=== PATIENT | female | born 2000 | race Caucasian/White ===

== ENCOUNTER 2018-12-15 20:37 | Outpatient (CLI) | payer OTHER | END 2018-12-15 22:52 | disposition home or self-care (01) | LOC: OBT 20:37 → L-D 20:37 → OBT 22:52 | DX: O28.0 Abnormal hematological finding on antenatal screening of mother (principal); Z3A.39 39 weeks gestation of pregnancy | CPT/HCPCS: 76818 ==

== ENCOUNTER 2018-12-18 08:25 | Inpatient (IN) | payer OTHER ==
[2018-12-18] MEDS: LACTATED RINGER'S 1,000 ML IV ×4 (09:26→22:47)
[2018-12-18] MEDS ORDERED: OXYTOCIN 30 UNITS/LR 500 ML IV ×2 (09:30→10:00)
[2018-12-18] MEDS ORDERED: MISOPROSTOL 200 MCG TAB PR (09:30)
[2018-12-18] MEDS ORDERED: CARBOPROST 250 MCG INJ IM (09:30)
[2018-12-18] MEDS ORDERED: METHYLERGONOVINE 0.2 MG INJ IM (09:30)
[2018-12-18 09:35] LABS: ADD MAN DIFF? NO
[2018-12-18 09:42] LABS: WHITE BLOOD COUNT 6.8 10^3/ul (4.8-10.8)
[2018-12-18 09:42] LABS: BASOPHILS % 0.3 % (0.0-2.0); EOSINOPHILS # 0.1 10^3/ul (0.0-0.5); EOSINOPHILS % 1.6 % (0.0-7.0); HEMATOCRIT 33.1 % (37.0-47.0); HEMOGLOBIN 10.7 g/dl (12.0-16.0); LYMPHOCYTES # 1.8 10^3/ul (0.8-2.9); LYMPHOCYTES % 25.8 % (18.0-55.0); MEAN CORPUSCULAR HEMOGLOBIN 28.9 pg (29.0-33.0); MEAN CORPUSCULAR HGB CONC 32.3 g/dl (32.0-37.0); MEAN CORPUSCULAR VOLUME 89.5 fl (72.0-104.0); MEAN PLATELET VOLUME 10.7 fl (7.4-10.4); MONOCYTE # 0.5 10^3/ul (0.3-0.9); MONOCYTES % 7.7 % (0.0-13.0); NEUTROPHIL # 4.3 10^3/ul (1.6-7.5); PLATELET COUNT 223 10^3/UL (140-415); RED CELL DISTRIBUTION WIDTH 13.4 % (11.5-14.5)
[2018-12-18] MEDS: MISOPROSTOL 50 MCG CAPSULE PO ×4 (09:59→22:00)
[2018-12-18 10:04] LABS: INR 0.97
[2018-12-18 10:05] LABS: PARTIAL THROMBOPLASTIN TIME 26.9 Sec (23.0-35.0)
[2018-12-18 15:02] LABS: RAPID PLASMA REAGIN NONREACTIVE (NR)
[2018-12-18] MEDS ORDERED: FENTAnyl 2MCG/ML-ROPIV 0.2% 100 ML (22:20)
[2018-12-18] MEDS ORDERED: NALOXONE (0.4 MG/ML) INJ IV (23:00)
[2018-12-18] MEDS ORDERED: FENTAnyl 2MCG/ML-ROPIV 0.2% 100 ML BAG EPI (23:00)
[2018-12-18] MEDS ORDERED: ONDANSETRON 4 MG INJ IV (23:00)
[2018-12-18] MEDS ORDERED: DIPHENHYDRAMINE 50 MG INJ IV (23:00)
[2018-12-18] MEDS ORDERED: TRIMETHOBENZAMIDE 100 MG/ML VIAL IM (23:00)
[2018-12-19] MEDS: BUTORPHANOL 2 MG INJ IV (00:11)
[2018-12-19] MEDS: LIDOCAINE 1% (MPF) 30 ML INJ INJ (00:14)
[2018-12-19] MEDS: OXYTOCIN 30 UNITS/LR 500 ML IV ×2 (00:16→01:05)
[2018-12-19] MEDS ORDERED: METHYLERGONOVINE 0.2 MG INJ IM (03:30)
[2018-12-19] MEDS ORDERED: HYDROCODONE/APAP (5/325) TAB PO (03:30)
[2018-12-19] MEDS ORDERED: MISOPROSTOL 200 MCG TAB PR (03:30)
[2018-12-19] MEDS ORDERED: OXYTOCIN 30 UNITS/LR 500 ML IV (03:30)
[2018-12-19] MEDS ORDERED: CARBOPROST 250 MCG INJ IM (03:30)
[2018-12-19] MEDS ORDERED: DIBUCAINE 1% 30 GM OINT TOP (03:30)
[2018-12-19] MEDS: BENZOCAINE 20% 56 ML SPRAY TOP (04:43)
[2018-12-19] MEDS: LACTATED RINGER'S 1,000 ML IV* ×2 (04:43→11:22)
[2018-12-19] MEDS: WITCH HAZEL/GLYCERIN PAD PR (04:44)
[2018-12-19] MEDS: IBUPROFEN 600 MG TAB PO ×4 (05:38→23:46)
[2018-12-19] MEDS: SENNA/DOCUSATE NA (8.6MG/50MG) TAB PO ×2 (09:35→21:25)
[2018-12-20] MEDS: ACETAMINOPHEN 325 MG TAB PO (04:04)
[2018-12-20] MEDS: IBUPROFEN 600 MG TAB PO ×4 (05:40→23:46)
[2018-12-20 08:37] LABS: ADD MAN DIFF? NO
[2018-12-20 08:44] LABS: BASOPHILS % 0.3 % (0.0-2.0); EOSINOPHILS # 0.2 10^3/ul (0.0-0.5); EOSINOPHILS % 2.6 % (0.0-7.0); HEMATOCRIT 29.2 % (37.0-47.0); HEMOGLOBIN 9.2 g/dl (12.0-16.0); LYMPHOCYTES # 2.1 10^3/ul (0.8-2.9); LYMPHOCYTES % 22.4 % (18.0-55.0); MEAN CORPUSCULAR HEMOGLOBIN 28.9 pg (29.0-33.0); MEAN CORPUSCULAR HGB CONC 31.5 g/dl (32.0-37.0); MEAN CORPUSCULAR VOLUME 91.8 fl (72.0-104.0); MEAN PLATELET VOLUME 10.6 fl (7.4-10.4); MONOCYTE # 0.5 10^3/ul (0.3-0.9); MONOCYTES % 4.8 % (0.0-13.0); NEUTROPHIL # 6.4 10^3/ul (1.6-7.5); NEUTROPHILS % 69.3 % (30.0-74.0); PLATELET COUNT 190 10^3/UL (140-415); RED BLOOD COUNT 3.18 10^6/ul (4.20-5.40)
[2018-12-20 08:44] LABS: WHITE BLOOD COUNT 9.3 10^3/ul (4.8-10.8)
[2018-12-20] MEDS: SENNA/DOCUSATE NA (8.6MG/50MG) TAB PO ×2 (09:27→21:33)
[2018-12-21] MEDS: IBUPROFEN 600 MG TAB PO ×2 (05:39→11:34)
[2018-12-21] MEDS: DIPHTH/TET/ACEL PERTUSS (ADULT) 0.5 ML VIAL IM* (09:12)
[2018-12-21] MEDS: SENNA/DOCUSATE NA (8.6MG/50MG) TAB PO (09:14)
== END 2018-12-21 13:50 | disposition home or self-care (01) | DRG 807 ==
LOC: PP1 12-19 02:56 → L-D 08:25
PROVIDERS: Obstetrics & Gynecology
PROC: 10E0XZZ Delivery of Products of Conception, External Approach (ICD-10-PCS; principal; 2018-12-19)
PROC: 0KQM0ZZ Repair Perineum Muscle, Open Approach (ICD-10-PCS; 2018-12-19)
DX: O70.1 Second degree perineal laceration during delivery (principal); Z37.0 Single live birth; Z3A.39 39 weeks gestation of pregnancy
CPT/HCPCS: 62322; 76815; 85025; 85610; 85730; 86592; 86850; 86900; 86901; 99464